=== PATIENT | female | born 1950 | race Caucasian/White ===

== ENCOUNTER 2023-09-04 19:26 | Emergency (ER) | payer MEDICARE, SELFPAY ==
--- NOTE | ~2023-09-04 | XR_ITS ---
EXAMINATION: XR CHEST CLINICAL INFORMATION: Generalized weakness. COMPARISON: Chest radiograph dated 03/18/2010. TECHNIQUE: 2 views of the chest were obtained. FINDINGS: The trachea is in normal anatomic position. The cardiac silhouette is normal in size. The lungs are clear. There is no pleural effusion or pneumothorax. There are degenerative changes of the visualized spine. XR/XR chest 2V IMPRESSION: No acute cardiopulmonary disease.
[2023-09-04 20:05] VITALS: BP 104/48; PULSE 72; RESP 14; TEMP 36.2; O2SAT 97; BMI 34.0
--- NOTE | 2023-09-04 20:12 | ED.GENADULT ---
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 Related Data Allergies Allergy/AdvReac Type Severity Reaction Status Date / Time latex [Latex] Allergy Mild ITCH/RASH Verified 09/04/23 20:12 erythromycin base Allergy Unknown Verified 09/04/23 20:13 Review of Systems Review of Systems: Pertinent positives and negatives as stated in [facility] Past Medical History Source: nursing notes reviewed Social History Social History Smoked in Last 30 Days: No Use of substances other than those prescribed or required for medical reasons: No Advance Directives: No Physical Exam ED Vital Signs: Vital Signs - 24 hr 09/04/23 20:05 09/05/23 07:30 09/05/23 09:40 Temperature 97.2 F 97.6 F 97.4 F Pulse Rate 72 59 47 L Respiratory Rate 14 16 14 Blood Pressure 104/48 L 154/55 H 168/57 H Pulse Oximetry 97 97 98 Oxygen Delivery Method Room Air Room Air Room Air 09/05/23 11:22 Temperature 97.7 F Pulse Rate 47 L Respiratory Rate 14 Blood Pressure 167/67 H Pulse Oximetry 97 Oxygen Delivery Method Room Air BMI result Body Mass Index 34.0 VITAL SIGNS: Reviewed. GENERAL: Well developed, well nourished, in no acute distress. HEAD: Normocephalic/atraumatic EYES: PERRLA, EOMI EARS: Ext canals without abnormality, TMs non-bulging and non-erythematous NOSE: Nares patent bilateral OROPHARYNX: no oral lesions noted, posterior pharynx clear and non-erythematous without noted tonsillar enlargement/erythema/exudates NECK: Supple, no adenopathy LUNGS: Normal breath sounds. No adventitious sounds or accessory muscle use. SpO2<98> CARDIOVASCULAR: Regular rate and rhythm without noted murmurs, no JVD or lower extremity edema. ABDOMEN: Soft, non-tender, non-distended with bowel sounds. MUSCULOSKELETAL: No tenderness, deformities, or effusions noted on gross inspection. EXTREMITIES: No cyanosis, clubbing or edema. SKIN: Inspection of the skin reveals no rashes NEUROLOGIC: Alert and oriented x 4. Strength and sensation to light touch were grossly intact x 4, no facial asymmetry, no pronator drift, cranial nerves 2-12 are grossly intact. Course Course Course Narrative: RME:?73 yo female here w/ son for eval of generalized weakness, increased fatigue, and feeling off balance which began upon waking up yesterday morning (>24 hours ago). no hx of VTE or CVA. denies AC. denies head trauma or injury. Also admits to chronic low back pain for which she is currently in PT for. exam nonfocal. AOX3. FAST negative. labs, ct ordered. Full HPI, ROS and PE to be performed by the primary ED provider. Medical Decision Making Medical Decision Making [facility] Narrative: 1030: 73-year-old female with history and clinical presentation, DDX: Infection, anemia, electrolyte derangements, ACS, pneumonia, viral illness. I reviewed all investigations and hematologic indices negative for significant leukocytosis/anemia/thrombocytopenia. Chemistry indices negative for evidence to suggest JAIRO or electrolyte/liver enzyme derangements. I sensitivity troponin is undetectable and there are no acute changes on EKG noted. Urinalysis negative for evidence urinary tract infection or hematuria. Viral testing is negative for influenza/RSV/COVID-19 and chest x-ray is negative for infiltrate or venous congestion otherwise my interpretation is in agreement with radiology's impression. My interpretation is patient may be experiencing some viral symptoms though nothing has been identified here, she was encouraged to go home and follow-up with your primary care doctor, get plenty of rest and drink plenty of fluids. Differential Diagnosis Differential Diagnoses: The differential diagnosis associated with the presentation includes Please see the discussion above Admission/Observation Consideration of admission/observation: Escalation of care including admission/observation considered Please see the discussion above Lab Data [facility] Lab Attestation statement: I reviewed the patient's lab results. Please see the discussion above 09/04/23 20:17 09/04/23 20:17 Labs: Lab Results 09/04/23 09/05/23 09/05/23 Range/Units 20:17 08:28 10:27 WBC 10.9 H (4.8-10.8) X10*3/uL RBC 4.26 (4.20-5.50) X10*6/uL Hgb 13.1 (12.0-16.0) g/dl Hct 39.5 (37.0-47.0) % MCV 92.7 (80.0-98.0) fL MCH 30.8 (27.0-33.0) pg MCHC 33.2 (31.0-35.0) g/dl RDW 13.5 (11.0-16.0) % Plt Count 272 (160-400) X10*3/uL MPV 9.6 (9.4-12.3) fL Immature Gran % (Auto) 0.4 (0.0-0.4) % Neut % (Auto) 67.8 (45-73) % Lymph % (Auto) 21.7 (20-40) % [place] % (Auto) 7.6 (2-11) % Eos % (Auto) 2.0 (0-4) % Baso % (Auto) 0.5 (0-2) % Lymph # (Auto) 2.4 (1.2-4.9) X10*3/uL [place] # (Auto) 0.8 (0.1-1.2) X10*3/uL Eos # (Auto) 0.2 (0.0-0.4) X10*3/uL Baso # (Auto) 0.1 (0.0-0.2) X10*3/uL Abs Immat Gran (auto) 0.04 H (0.00-0.03) X10*3/uL Absolute Neuts (auto) 7.4 (2.0-8.3) x10*3/uL Absolute Nucleated RBC 0.000 (0.0-0.012) X10*3/uL Nucleated RBC % (auto) 0.0 (0.0-0.2) /100WBC Sodium 145 (135-145) mmol/L Potassium 4.5 (3.3-5.1) mmol/L Chloride 111 H (96-108) mmol/L Carbon Dioxide 28 (22-29) mmol/L Anion Gap 11 L (12-20) BUN 21 H (9-16) mg/dL Creatinine 1.18 (0.5-1.4) mg/dL Estim Creat Clear Calc 41.5 Estimated GFR 45 Random Glucose 103 (60-115) mg/dL Calcium 8.9 (8.4-10.2) mg/dL Magnesium 2.3 (1.6-2.6) mg/dL Total Bilirubin 0.2 (0.0-1.0) mg/dL AST 16 (5-31) U/L ALT 12 (0-31) U/L Alkaline Phosphatase 59 (39-117) U/L Troponin I High Sens < 2.7 (<3.5-17.0) ng/L Total Protein 6.4 L (6.5-8.0) g/dL Albumin 3.6 (3.5-5.0) g/dL Urine Color Yellow Urine Appearance Clear Urine pH 6.5 (5.0-9.0) Ur Specific [place] 1.010 (1.005-1.025) Urine Protein Negative (Neg-Trace) mg/dL Urine Glucose (UA) Negative (Negative) mg/dL Urine Ketones Negative (Negative) mg/dL Urine Blood Negative (Negative) Urine Nitrite Negative (Negative) Ur Leukocyte Esterase Trace H (Negative) Urine RBC 0-2 (0-2) /HPF Urine WBC 0-5 (0-5) /HPF Ur Squamous Epith Cells 0-2 (0-2) /HPF Urine Bacteria None Seen (None Seen) Hyaline Casts 0-2 (0-2) /LPF Influenza Type A (PCR) NEGATIVE (Negative) Influenza Type B (PCR) NEGATIVE (Negative) RSV RNA Qual (PCR) NEGATIVE (Negative) SARS-CoV-2 RNA (RT-PCR) NEGATIVE (Negative) Independent Interpretation I performed an independent interpretation of an: EKG Interpretation: Sinus bradycardia, HR-45, no STEMI, WI/QRS/QTC is within normal limits. Radiology Impression Discussion of test interpretation with radiology: I have reviewed the radiologist's reading. Radiologist Impression: Please see the discussion above External Record Review External record reviewed: Outpatient record, Prior outpatient labs and Prior outpatient radiology Critical Care Time Critical Care Time Critical Care Time: Yes Total Critical Care Time: 60 Attestation: I personally attest to this time spent taking care of the patient. Discharge Plan Discharge Clinical Impression: Weakness, Viral syndrome Patient Disposition: Home, Self-Care Instructions: Viral Syndrome (ED), Weakness (ED) Additional Instructions: 1. Please continue all medications. 2. Follow-up with your primary care doctor. Return to the ER for any worsening symptoms. Referrals: Marbella Philip MD [Primary Care Provider] - Print Language: Norwegian
[2023-09-04 20:21] LABS: MANUAL DIFF FLAG NO
[2023-09-04 20:24] LABS: Basophils Absolute Auto 0.1 X10*3/uL (0.0-0.2); Basophils Percent Auto 0.5 % (0-2); Eosinophils Absolute Auto 0.2 X10*3/uL (0.0-0.4); Hematocrit 39.5 % (37.0-47.0); Hemoglobin 13.1 g/dl (12.0-16.0); Imm Gran Abs Auto 0.04 X10*3/uL (0.00-0.03); Imm Gran Pct Auto 0.4 % (0.0-0.4); Lymphocytes Absolute Auto 2.4 X10*3/uL (1.2-4.9); Lymphocytes Percent Auto 21.7 % (20-40); Mean Corpuscular HGB Conc 33.2 g/dl (31.0-35.0); Mean Corpuscular Hemoglobin 30.8 pg (27.0-33.0); Mean Corpuscular Volume 92.7 fL (80.0-98.0); Mean Platelet Volume 9.6 fL (9.4-12.3); Monocytes Absolute Auto 0.8 X10*3/uL (0.1-1.2); Monocytes Percent Auto 7.6 % (2-11); Neutrophils Absolute Auto 7.4 x10*3/uL (2.0-8.3); Neutrophils Percent Auto 67.8 % (45-73); Platelet Count 272 X10*3/uL (160-400); Red Blood Count 4.26 X10*6/uL (4.20-5.50); Red Cell Distribution Width 13.5 % (11.0-16.0); White Blood Count 10.9 X10*3/uL (4.8-10.8)
[2023-09-04 20:37] LABS: Alanine Aminotransferase 12 U/L (0-31); Albumin Level 3.6 g/dL (3.5-5.0); Alkaline Phosphatase 59 U/L (39-117); Anion Gap 11 (12-20); Aspartate Amino Transferase 16 U/L (5-31); Bilirubin Total 0.2 mg/dL (0.0-1.0); Blood Urea Nitrogen 21 mg/dL (9-16); Calcium 8.9 mg/dL (8.4-10.2); Carbon Dioxide 28 mmol/L (22-29); Chloride 111 mmol/L (96-108); Creatinine Clr Calc Pharmacy 41.5; Estimated Glomerular Filt Rate 45; Glucose Random 103 mg/dL (60-115); Magnesium 2.3 mg/dL (1.6-2.6); Potassium 4.5 mmol/L (3.3-5.1); Sodium 145 mmol/L (135-145); Total Protein 6.4 g/dL (6.5-8.0)
[2023-09-05 07:30] VITALS: BP 154/55; PULSE 59; RESP 16; TEMP 36.4; O2SAT 97
[2023-09-05 08:38] LABS: Appearance Urine Clear; Color Urine Yellow; Glucose Urine UA Negative (Negative); Leukocyte Esterase Urine Trace (Negative); Nitrite Urine Negative (Negative); PH 6.5 (5.0-9.0); UMIC TRIGGER UACC YES; Urine Blood Negative (Negative); Urine Ketones Negative (Negative); Urine Protein Negative (Neg-Trace)
[2023-09-05 08:43] LABS: Bacteria Urine None Seen (None Seen); Hyaline Casts Urine 0-2 /LPF (0-2); RBC Urine 0-2 /HPF (0-2); Squamous Epithelial Cell Urine 0-2 /HPF (0-2); WBC Urine 0-5 /HPF (0-5)
--- NOTE | 2023-09-05 09:30 | PC.NURSE ---
ready to wear department manager utilized. Pt reports cloudy vision and poor balance 2 days ago that has since resolved. Pt reports lower back pain, chronic, 10/10, reports not a new issue, and sitting in triage made it worse. Pt reports her mouth feels dry and she feels dehydrated, reporting overall weakness and having to rely on her walker more over the past few days. Pt denies dizziness, SOB, recent falls or illnesses. Pt is alert and oriented, breathing even and unlabored, skin dry. Stroke scale done, pt neg for slurred speech, unilateral weakness, facial droop or arm drift. Pt placed on bedside manager monitoring, sinus bradycardia in the 40s.
[2023-09-05 09:40] VITALS: BP 168/57; PULSE 47; RESP 14; TEMP 36.3; O2SAT 98
--- NOTE | 2023-09-05 09:49 | ECG_ITS ---
Test Reason : chest pain Blood Pressure : / mmHG Vent. Rate : 045 BPM Atrial Rate : 045 BPM P-R Int : 194 ms QRS Dur : 078 ms QT Int : 482 ms P-R-T Axes : 059 028 055 degrees QTc Int : 416 ms Sinus bradycardia Otherwise normal ECG When compared with ECG of 01-APR-2007 14:16, Vent. rate has decreased BY 28 BPM Referred By: Elissa Crane Electronically Signed By:JENARO CARRASCO MD
--- NOTE | 2023-09-05 10:10 | PC.NURSE ---
Pt alerted RNs that she is having chest pain. ECG ordered and provider aware.
[2023-09-05 11:00] LABS: Troponin-I High Sensitivity < 2.7 ng/L (<3.5-17.0)
[2023-09-05 11:22] VITALS: BP 167/67; PULSE 47; RESP 14; TEMP 36.5; O2SAT 97
[2023-09-05 11:50] LABS: Influenza A PCR NEGATIVE (Negative); Influenza B PCR NEGATIVE (Negative); Resp Syncy Virus RNA Qual PCR NEGATIVE (Negative); SARS COV2 PCR INHOUSE NEGATIVE (Negative)
--- NOTE | 2023-09-05 11:55 | PC.NURSE ---
Assumed care of this patient at 1100, patient resting quietly on stretcher, requesting ice, no issues at this time.
--- NOTE | 2023-09-05 13:17 | PC.NURSE ---
Went into to review patient discharge paperwork, patient refusing to sign discharge paperwork until provider returns and speaks with patient. Dr. Gallagher made aware, went to bedside to speak with patient about her results with lithographic printing machinist, all results were negative. Encouraged patient to return to ER if symptoms return or any new medical complaint. Patient very upset, with numerous questions all relayed through green meat packer Michelle, patient stated she does not want to sign any discharge paperwork. Patient offered to take paperwork again as it is education for her, her family, and her PCP to review with her. Patient adamantly refused, walked out of room with walker, assisted to waiting room to wait for ride.
[2023-09-05 13:28] VITALS: BP 167/67; PULSE 53; RESP 16; TEMP 36.5; O2SAT 97
== END 2023-09-05 13:20 | disposition home or self-care (01) ==
PROVIDERS: Physician Assistant Medical; Emergency Provider Student in an Organized Health Care Education/Training Program; PCP Internal Medicine
DX: M54.50 Low back pain, unspecified (principal); R42 Dizziness and giddiness; R07.89 Other chest pain; M79.605 Pain in left leg; M79.604 Pain in right leg; Z03.818 Encounter for observation for suspected exposure to other biological agents ruled out; Z79.899 Other long term (current) drug therapy
CPT/HCPCS: 0241U; 36415; 71046; 80053; 81001; 83735; 84484; 85025; 93005; 99283; 99284

== ENCOUNTER → 2023-09-05 09:49 | Outpatient (BNV) | payer MEDICARE, SELFPAY | PROVIDERS: Emergency Provider Student in an Organized Health Care Education/Training Program; PCP Internal Medicine; Visit Provider Internal Medicine Cardiovascular Disease | DX: R07.9 Chest pain, unspecified (principal) | CPT/HCPCS: 93010 ==

== ENCOUNTER 2025-05-05 11:34 | Outpatient (AMB) | payer MEDICARE, SELFPAY ==
--- NOTE | 2025-05-05 11:36 | A.PHYSOV_ITS ---
Vital Signs 05/05/25 11:36 Height 5 ft 2 in Weight 164 lb BMI 30.0 Intake Visit Reasons: 3M followup Intake Note: Patient is a 74 year old female in office for her 3 month medication management appointment Allergies latex (Latex) Allergy (Mild, Verified 09/04/23 20:12) ITCH/RASH erythromycin base Allergy (Verified 09/04/23 20:13) Unknown HPI Comments Details: History of Present Illness The patient is a 74 year old female who presents for a follow-up visit for chronic pain involving multiple areas of her body. She has a contract for oxycodone 5 mg, which she takes occasionally for severe pain, reporting rational use of the medication which helps improve her functionality and quality of life. Her prescription monitoring report was reviewed. Past interventions include an ultrasound-guided injection of the right hip, two right L2 transforaminal injections on June 01, 2023, and August 13, 2023, and bilateral SI joint injections on December 10, 2023. No further injections are not being considered at this time. Patient presented accompanied by her son. Her condition remains stable. Pain Description - Location: Pain affects multiple areas of her body. - Quality: The pain is variable, with some days being good, some bad, and some irregular. - Alleviating factors: Oxycodone 5 mg helps with severe pain. Results - Tests and Diagnostics: A prescription monitoring report was reviewed. [facility] Medical History (Updated 05/05/25 @ 11:53 by Wesley Corley DO) Sacroiliac dysfunction Right hip pain Spinal stenosis, lumbar region with neurogenic claudication Lumbar radiculitis Surgical History History of cataract surgery H/O shoulder surgery H/O: hysterectomy History of hernia repair History of carpal tunnel surgery History of back surgery Social History Alcohol intake: current Alcohol intake frequency: does not drink Patient Tobacco Use Status: Former Tobacco user Current occupational status: retired Review of Systems Narrative Review of Systems - Musculoskeletal: Reports chronic pain in multiple areas of the body. She denies any change in bowel bladder habits. She denies any fever or chills. Physical Exam Exam Exam: Physical Exam Patient appears to be in no acute distress, gait without antalgia, lumbar extension was restricted. Dural tension signs were negative. No pain with internal rotation of either hip. Bilateral sacroiliac tenderness with palpation. Neurological examination was nonfocal. Vital Signs: BMI result Body Mass Index 30.0 Assessment & Plan Assessment & Plan (1) Lumbar radiculitis: Code(s): M54.16 - Radiculopathy, lumbar region Category: Medical (2) Spinal stenosis, lumbar region with neurogenic claudication: Code(s): M48.062 - Spinal stenosis, lumbar region with neurogenic claudication Category: Medical (3) Right hip pain: Code(s): M25.551 - Pain in right hip Category: Medical (4) Sacroiliac dysfunction: Code(s): M53.3 - Sacrococcygeal disorders, not elsewhere classified Category: Medical Plan Pain Management - Analgesia: The patient is prescribed oxycodone 5 mg for occasional use, which she reports is effective for severe pain. - Activities of Daily Living: The medication allows her to be more functional and improves her quality of life. - Aberrant Drug-Related Behaviors: The patient is described as being very rational with her medication use and is on a medication contract. Plan Patient was informed and verbally consented to the use of an ambient scribe for clinic note documentation during this visit. 1. Chronic Pain The patient continues to experience chronic pain in multiple body areas, which she manages with occasional use of oxycodone 5 mg. The medication is effective and used rationally, helping her function and quality of life. A refill for her oxycodone will be sent to the pharmacy. Further injections are not being considered. A follow-up visit is scheduled for three months. Discussion Notes I discussed the patient's chronic pain management with her and her son. I acknowledged that her occasional use of oxycodone 5 mg has been rational and effective for severe pain, improving her function and quality of life. We reviewed her prescription monitoring report. I informed her that I would send a refill for her medication to the pharmacy. We are not considering further injections at this time. I recommended she schedule a follow-up appointment in three months. Patient Instructions - Continue taking your oxycodone 5 mg pills only when you have severe pain. - A refill of your pain medication will be sent to your pharmacy. - Please make a follow-up appointment to be seen in the office in three months. Medications: New oxycodone-acetaminophen 5-325 mg Partial fill upon request 1 tab PO QID PRN 28 tabs 0RF pain 7 days M25.551 - Pain in right hip, M48.062 - Spinal stenosis, lumbar region with neurogenic claudication, M53.3 - Sacrococcygeal disorders, not elsewhere classified, M54.16 - Radiculopathy, lumbar region Coding Level of Care Code Est Pt Level 3 (70823) Complex visit Add On G2211 Diagnoses Lumbar radiculitis M54.16 Spinal stenosis, lumbar region with neurogenic claudication M48.062 Right hip pain M25.551 Sacroiliac dysfunction M53.3
== END 2025-05-05 11:46 | disposition home or self-care (01) ==
LOC: HO.HPHYS 11:34
PROVIDERS: PCP Internal Medicine; Visit Provider Physical Medicine & Rehabilitation
DX: M54.16 Radiculopathy, lumbar region (principal); M48.062 Spinal stenosis, lumbar region with neurogenic claudication; M25.551 Pain in right hip; M53.3 Sacrococcygeal disorders, not elsewhere classified
CPT/HCPCS: 99213; G2211

== ENCOUNTER → 2025-05-05 11:34 | Outpatient (BNVA) | payer MEDICARE, SELFPAY | PROVIDERS: PCP Internal Medicine; Visit Provider Physical Medicine & Rehabilitation | DX: M54.16 Radiculopathy, lumbar region (principal); M48.062 Spinal stenosis, lumbar region with neurogenic claudication; M25.551 Pain in right hip; M53.3 Sacrococcygeal disorders, not elsewhere classified | CPT/HCPCS: 99212 ==